=== PATIENT | female | born 1995 | race Caucasian/White ===

== ENCOUNTER 2017-08-05 14:06 | Emergency (ER) | payer OTHER ==
[2017-08-05 14:10] VITALS: BP 131/70
[2017-08-05] MEDS ORDERED: IOHEXOL 300 MG/ML 75 ML VIAL. IV ONE (14:45)
[2017-08-05 14:56] LABS: BASO # 0.1 x10^3/uL (0.0-0.2); BASO % 1 % (0-3); EOS # 0.6 x10^3/uL (0.0-0.7); EOS % 10 % (0-3); HEMATOCRIT 40.6 % (36.0-47.0); HEMOGLOBIN 13.8 g/dL (12.0-15.5); LYMPH # 2.2 x10^3/uL (1.0-4.8); LYMPH % 34 % (24-48); MEAN CORPUSCULAR HEMOGLOBIN 32 pg (25-35); MEAN CORPUSCULAR HGB CONC 34 g/dL (31-37); MEAN CORPUSCULAR VOLUME 94 fL (79-100); MONO # 0.5 x10^3/uL (0.0-1.1); MONO % 8 % (0-9); NEUT # 3.1 x10^3uL (1.8-7.7); NEUT % 48 % (31-73); PLATELET COUNT 244 x10^3/uL (140-400); RED BLOOD COUNT 4.33 x10^6/uL (3.50-5.40); RED CELL DISTRIBUTION WIDTH 12.7 % (11.5-14.5); WHITE BLOOD COUNT 6.5 x10^3/uL (4.0-11.0)
[2017-08-05 15:08] LABS: PREG TEST PT QUAL NEGATIVE (NEG)
[2017-08-05 15:16] LABS: ALBUMIN 3.1 g/dL (3.4-5.0); ALBUMIN/GLOBULIN RATIO 0.9 (1.0-1.7); CREATININE 0.9 mg/dL (0.6-1.0); GFR 80.7; POTASSIUM 4.1 mmol/L (3.5-5.1); TOTAL BILIRUBIN 0.4 mg/dL (0.2-1.0); TOTAL PROTEIN 6.7 g/dL (6.4-8.2)
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
[2017-08-05] MEDS ORDERED: HYDR-971 PO (16:54)
== END 2017-08-05 17:05 | disposition home or self-care (01) ==
LOC: ER 14:06
DX: S09.8XXA Other specified injuries of head, initial encounter (principal); S16.1XXA Strain of muscle, fascia and tendon at neck level, initial encounter; S76.011A Strain of muscle, fascia and tendon of right hip, initial encounter; R10.9 Unspecified abdominal pain; M54.9 Dorsalgia, unspecified; V89.2XXA Person injured in unspecified motor-vehicle accident, traffic, initial encounter; Y93.89 Activity, other specified; Y99.8 Other external cause status; Y92.488 Other paved roadways as the place of occurrence of the external cause
CPT/HCPCS: 36415; 70450; 71260; 72125; 74177; 80053; 84703; 85025; 99285; Q9967

== ENCOUNTER 2021-08-11 20:15 | Emergency (ER) | payer BC, OTHER ==
[~2021-08-11 20:15] MED LIST: HYDR-3165 PO
[2021-08-11] MEDS ORDERED: ACETAMINOPHEN 500 MG TABLET PO ONE (20:45)
--- NOTE | 2021-08-11 20:45 | PHYS DOC ---
Past History Past Medical History: Anxiety, Depression Past Surgical History: No Surgical History Alcohol Use: None Drug Use: None Adult General HPI HPI Patient is a 25-year-old female who presents with left wrist pain, 6 out of 10, dull achy in nature is been going on for about a week. Denies any recent travel, traumas, illnesses, fevers. States has been taking Tylenol and ibuprofen at home with mild relief. States she has not talked to her doctor about this yet. Review of Systems Review of Systems Review of systems otherwise unremarkable except noted in HPI Allergies Allergies Allergies Coded Allergies Type Severity Reaction Last Updated Verified No Known Drug Allergies 08/05/17 No Physical Exam Physical Exam Constitutional: Well developed, well nourished, no acute distress, non-toxic appearance. [] HENT: Normocephalic, atraumatic, bilateral external ears normal, oropharynx moist, no oral exudates, nose normal. [] Extremities: No tenderness, no cyanosis, no clubbing, ROM intact, no edema. [] Neurologic: Alert and oriented X 3, normal motor function, normal sensory function, no focal deficits noted. [] Psychologic: Affect normal, judgement normal, mood normal. [] EKG EKG [] Radiology/Procedures Radiology/Procedures [] Heart Score C/O Chest Pain: No Risk Factors: Risk Factors: DM, Current or recent (<one month) smoker, HTN, HLP, family history of CAD, obesity. Risk Scores: Risk Factors: DM, Current or recent (<one month) smoker, HTN, HLP, family history of CAD, obesity. Course & Med Decision Making Course & Med Decision Making Patient is a 25-year-old female presents with left wrist pain Vital signs nonconcerning. Physical exam noted above. Given ice and Tylenol. Given ibuprofen. Imaging with no acute osseous abnormalities. Discussed findings with patient. Discussed symptom control at home Advised to follow-up Friday with primary care physician. 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 Patient grateful, verbalized understanding and agreed with plan of discharge. Dragon Disclaimer Dragon Disclaimer This electronic medical record was generated, in whole or in part, using a voice recognition dictation system. Departure Departure: Impression: Primary Impression: Wrist pain Disposition: HOME / SELF CARE / HOMELESS Condition: GOOD Referrals: TAMERA OLSEN MD (PCP) Patient Instructions: RICE - Routine Care for Injuries Additional Instructions: Thank you for coming into the emergency department tonight and allowing us to help you. Please read the attached information carefully to go back over things we discussed. Please begin a Tylenol, ibuprofen and ice regimen. Please follow-up with your primary care physician update on ED visit and set up a follow-up. Please contact with new or concerning symptoms as discussed. KRISTIN ARMIJO MD Aug 11, 2021 20:45
--- NOTE | 2021-08-11 22:39 | RAD ---
Exam: Left wrist 3 views INDICATION: Entire wrist pain TECHNIQUE: Frontal, lateral and oblique views of the left wrist Comparisons: None FINDINGS: Bone mineralization is normal. No acute or healed fractures. Soft tissues are unremarkable. Joint spa uriel are well-maintained IMPRESSION: No acute osseous abnormality. Electronically signed by: Steve Munroe MD (08/11/2021 10:36 PM) GIFTY
== END 2021-08-11 23:10 | disposition home or self-care (01) ==
LOC: ER 20:15
DX: M25.532 Pain in left wrist (principal)
CPT/HCPCS: 73110; 99283